=== PATIENT | male | born 1980 | race Caucasian/White ===

== ENCOUNTER 2018-12-06 14:44 | Emergency (ER) | payer BC, SELFPAY ==
--- NOTE | 2018-12-06 15:19 | ER ---
Nurse's Notes [facility] Name: Riki Vinson Age: 38 yrs Sex: Male : 1980 Arrival Date: 12/06/2018 Time: 14:50 Bed Waiting Private MD: None, None Diagnosis: ED Course: 12/06 14:50 Patient arrived in ED. mr 14:50 None, None is Private Physician. mr Administered Medications: No medications were administered Outcome: 15:19 Patient left the ED. ss Signatures: Eveline Moreno Shelby, RN RN ss
== END 2018-12-06 15:19 | disposition left against medical advice (07) ==
LOC: ER 14:44
DX: Z53.21 Procedure and treatment not carried out due to patient leaving prior to being seen by health care provider (principal)

== ENCOUNTER 2018-12-07 11:04 | Emergency (ER) | payer SELFPAY ==
--- NOTE | 2018-12-07 11:51 | RAD REPORT ---
EXAM DESCRIPTION: CT - Spine Lumbar Wo Con - 12/07/2018 11:38 am CLINICAL HISTORY: Radiculopathy. PAIN COMPARISON: No comparisons TECHNIQUE: Axial noncontrast CT imaging of the lumbar spine was performed with coronal and sagittal re-formatted images. All CT scans are performed using dose optimization technique as appropriate and may include automated exposure control or mA/KV adjustment according to patient size. FINDINGS: No acute lumbar spine fracture seen. No aggressive marrow pattern or malalignment. Paraspinal tissues are normal in thickness. No paraspinal abscess or hematoma seen. Chronic bilateral spondylolysis is seen at L5-S1 with mild grade 1 anterolisthesis of L5 on S1. IMPRESSION: No acute lumbar spine abnormality is seen. 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 Consider MRI follow-up for assessment of disc disease if clinically desired.
[2018-12-07] MEDS ORDERED: HYDROCODONE/APAP 10/325 TAB ONE (12:19)
[2018-12-07] MEDS ORDERED: DIAZEPAM 5 MG TABLET ONE (12:20)
--- NOTE | 2018-12-07 12:45 | EDPHYS ---
Physician Documentation [facility] Name: Riki Vinson Age: 38 yrs Sex: Male : 1980 Arrival Date: 12/07/2018 Time: 11:05 Bed 16 Private MD: ED Physician Mary Fish HPI: 12/07 11:29 This 38 yrs old Male presents to ER via Ambulatory with complaints of Back ma2 Pain. 11:29 The patient presents with pain that is acute. The symptoms are located in the low back. ma2 Onset: The symptoms/episode began/occurred gradually, 9 day(s) ago. The pain does not radiate. Associated signs and symptoms: The patient has no apparent associated signs or symptoms, Pertinent positives: none Pertinent negatives: abdominal pain, chest pain, constipation, dysuria, fever, headache, hematuria, incontinence, nausea, numbness, tingling, urinary retention, vomiting, weakness. Modifying factors: The patient symptoms are alleviated by nothing, the patient symptoms are aggravated by bending. Severity of symptoms: At their worst the symptoms were moderate, in the emergency department the symptoms are unchanged. The patient has not experienced similar symptoms in the past. Historical: - Allergies: 11:14 No Known Allergies; hb - Home Meds: 11:14 None [Active]; hb - PMHx: 11:14 None; hb - PSHx: 11:14 skin graft - ear; hb - Immunization history:: Adult Immunizations up to date. - Social history:: Smoking status: Patient uses tobacco products, smokes one pack cigarettes per day. Patient/guardian denies using alcohol, street drugs, The patient lives with family. - Ebola Screening: : No symptoms or risks identified at this time. - Family history:: not pertinent. ROS: 11:29 Constitutional: Negative for fever, chills, and weight loss. ma2 11:29 Back: Positive for pain with movement, Negative for injury or acute deformity, decreased range of motion, radiated pain, acute changes. 11:29 All other systems are negative. Exam: 11:29 Constitutional: This is a well developed, well nourished patient who is awake, alert, ma2 and in no acute distress. Chest/axilla: Normal chest wall appearance and motion. Nontender with no deformity. No lesions are appreciated. Cardiovascular: Regular rate and rhythm with a normal S1 and S2. No gallops, murmurs, or rubs. Normal PMI, no JVD. No pulse deficits. Respiratory: Lungs have equal breath sounds bilaterally, clear to auscultation and percussion. No rales, rhonchi or wheezes noted. No increased work of breathing, no retractions or nasal flaring. Abdomen/GI: Soft, non-tender, with normal bowel sounds. No distension or tympany. No guarding or rebound. No evidence of tenderness throughout. 11:29 Skin: Warm, dry with normal turgor. Normal color with no rashes, no lesions, and no evidence of cellulitis. MS/ Extremity: Pulses equal, no cyanosis. Neurovascular intact. Full, normal range of motion. Neuro: Awake and alert, GCS 15, oriented to person, place, time, and situation. Cranial nerves II-XII grossly intact. Motor strength 5/5 in all extremities. Sensory grossly intact. Cerebellar exam normal. Normal gait. 11:29 Back: pain, that is moderate, ROM is painful, normal spinal alignment noted, CVA tenderness, is absent, muscle spasm, is appreciated in the left low back and right low back, Straight leg raises: Vital Signs: 11:14 BP 139 / 75; Pulse 81; Resp 16; Temp 97.8; Pulse Ox 100% on R/A; Pain 6/10; hb MDM: 11:15 Patient medically screened. dc2 11:29 Differential diagnosis: Fracture Osteoarthritis ruptured disc, sprain, vertebral ma2 fracture. 11:31 ED course: ptn declined injections. dc2 12:44 Data reviewed: vital signs, nurses notes. Counseling: I had a detailed discussion with ma2 the patient and/or guardian regarding: the historical points, exam findings, and any diagnostic results supporting the discharge/admit diagnosis, the presence of at least one elevated blood pressure reading (>120/80) during this emergency department visit. Response to treatment: the patient's symptoms have markedly improved after treatment. 12/07 11:27 Order name: CT Lumbar Spine Wo Con; Complete Time: 12:03 ma2 12/07 11:19 Order name: NPO; Complete Time: 12:03 ma2 Administered Medications: 12:10 Drug: Valium 10 mg Route: PO; sg 12:10 Drug: [place] 10 mg-325 mg 1 tabs Route: PO; sg Disposition: 12/07/18 12:44 Discharged to Home. Impression: Low back pain. - Condition is Stable. - Discharge Instructions: Back Pain, Adult. - Prescriptions for Tylenol- Codeine #3 300-30 mg Oral Tablet - take 2 tablet by ORAL route every 6 hours As needed; 30 tablet. Cyclobenzaprine 10 mg Oral Tablet - take 1 tablet by ORAL route every 8 hours As needed; 30 tablet. - Work release form, Medication Reconciliation Form, Thank You Letter, Antibiotic Education, Prescription Opioid Use form. - Follow up: Private Physician; When: Tomorrow; Reason: Continuance of care. Signatures: Dispatcher [employer] EDBarrett Chris RN RN sg Baxter, Heather, RN RN Mary Fish MD MD ma2 Corrections: (The following items were deleted from the chart) 13:11 12:44 12/07/2018 12:44 Discharged to Home. Impression: Low back pain. Condition is sg Stable. Forms are Medication Reconciliation Form, Thank You Letter, Antibiotic Education, Prescription Opioid Use. Follow up: Private Physician; When: Tomorrow; Reason: Continuance of care. ma2
--- NOTE | 2018-12-07 12:45 | ER ---
Nurse's Notes [facility] Name: Riki Vinson Age: 38 yrs Sex: Male : 1980 Arrival Date: 12/07/2018 Time: 11:05 Bed 16 Private MD: Diagnosis: Low back pain Presentation: 12/07 11:12 Presenting complaint: Low back pain that radiates to left leg x 2 weeks. Denies injury. hb Transition of care: patient was not received from another setting of care. Onset of symptoms was December 07, 2018. Risk Assessment: Do you want to hurt yourself or someone else? Patient reports no desire to harm self or others. Initial Sepsis Screen: Does the patient meet any 2 criteria? No. Patient's initial sepsis screen is negative. Does the patient have a suspected source of infection? No. Patient's initial sepsis screen is negative. Care prior to arrival: None. 11:12 Method Of Arrival: Ambulatory hb 11:12 Acuity: SIL 4 hb Historical: - Allergies: 11:14 No Known Allergies; hb - Home Meds: 11:14 None [Active]; hb - PMHx: 11:14 None; hb - PSHx: 11:14 skin graft - ear; hb - Immunization history:: Adult Immunizations up to date. - Social history:: Smoking status: Patient uses tobacco products, smokes one pack cigarettes per day. Patient/guardian denies using alcohol, street drugs, The patient lives with family. - Ebola Screening: : No symptoms or risks identified at this time. - Family history:: not pertinent. Screenin:14 Abuse screen: Denies threats or abuse. Denies injuries from another. Nutritional hb screening: No deficits noted. Tuberculosis screening: No symptoms or risk factors identified. Fall Risk None identified. Vital Signs: 11:14 BP 139 / 75; Pulse 81; Resp 16; Temp 97.8; Pulse Ox 100% on R/A; Pain 6/10; hb ED Course: 11:05 Patient arrived in ED. as 11:13 Triage completed. hb 11:14 Arm band placed on left wrist. hb 11:15 Mary Fish MD is Attending Physician. ma2 11:[address] via wheelchair. vm2 11:37 CT Lumbar Spine Wo Con In Process Unspecified. EDMS 12:08 Tilley, Barrett, RN is Primary Nurse. sg Administered Medications: 12:10 Drug: Valium 10 mg Route: PO; sg 12:10 Drug: [place] 10 mg-325 mg 1 tabs Route: PO; sg Outcome: 12:44 Discharge ordered by MD. aquino 13:11 Patient left the ED. sg Signatures: Dispatcher [employer] EDMS Barrett Tilley RN RN sg Martinez, Amelia as Baxter, Heather, RN RN Jesica Mcintyre [facility] Mary Fish MD MD ma2
== END 2018-12-07 13:11 | disposition home or self-care (01) ==
LOC: ER 11:04
DX: M54.5 Low back pain (principal); M47.817 Spondylosis without myelopathy or radiculopathy, lumbosacral region; F17.210 Nicotine dependence, cigarettes, uncomplicated
CPT/HCPCS: 72131; 99284

== ENCOUNTER 2019-10-10 13:15 | Inpatient (IN) | payer SELFPAY ==
[2019-10-10] MEDS: VANCOMYCIN 1.75 GM in NA CHLORIDE 0.9% 500 ML IV SCH ×2 (02:00→14:00)
[2019-10-10] MEDS ORDERED: VANCOMYCIN/NS 1 gm 1 GM/250 ML BAG IV ONE (14:15)
[2019-10-10] MEDS ORDERED: NA CHLORIDE 0.9% 1,000 ML ONE (14:28)
[2019-10-10 14:29] LABS: Absolute Lymphocytes (CBC) 1.9 K/uL (0.7-4.9); Hematocrit 41.3 % (39.6-49.0); Lymphocytes % 22.1 % (15.3-44.8); MPV 8.8 fL (7.6-11.3); RBC Red Blood Cell Count 4.58 M/uL (4.33-5.43)
[2019-10-10 14:41] LABS: BUN Blood Urea Nitrogen 8 mg/dL (7-18); Bicarbonate 27 mmol/L (21-32); Glucose Level 94 mg/dL (74-106); Potassium 3.8 mmol/L (3.5-5.1); Sodium Level 142 mmol/L (136-145)
[2019-10-10] MEDS ORDERED: PIPER/TAZO/NS 3.375gm 3.375 GM/100 ML BAG ONE (14:52)
--- NOTE | 2019-10-10 14:55 | RAD REPORT ---
EXAM DESCRIPTION: Aj Single View10/10/2019 2:46 pm CLINICAL HISTORY: Buttock abscess. Preop COMPARISON: 2009 FINDINGS: The lungs appear clear of acute infiltrate. The heart is normal size IMPRESSION: No acute abnormalities displayed
--- NOTE | 2019-10-10 14:56 | ER ---
Nurse's Notes [facility] Name: Riki Vinson Age: 39 yrs Sex: Male : 1980 Arrival Date: 10/10/2019 Time: 13:17 Bed 20 Private MD: Diagnosis: Large abscess/ cellulitis right buttock Presentation: 10/10 13:29 Presenting complaint: Patient states: abscess to right buttock/upper leg area X 1 week. iw Transition of care: patient was not received from another setting of care. Onset of symptoms was October 04, 2019. Risk Assessment: Do you want to hurt yourself or someone else? Patient reports no desire to harm self or others. Initial Sepsis Screen: Does the patient meet any 2 criteria? No. Patient's initial sepsis screen is negative. Does the patient have a suspected source of infection? No. Patient's initial sepsis screen is negative. Care prior to arrival: None. 13:29 Method Of Arrival: Ambulatory iw 13:29 Acuity: SIL 4 iw 14:31 Acuity: SIL 3 iw Triage Assessment: 13:30 General: Appears in no apparent distress. comfortable, Behavior is calm, cooperative, bp appropriate for age. Pain: Complains of pain in right gluteus shailesh. EENT: No deficits noted. Neuro: No deficits noted. Cardiovascular: No deficits noted. Respiratory: No deficits noted. GI: No signs and/or symptoms were reported involving the gastrointestinal system. : No signs and/or symptoms were reported regarding the genitourinary system. Derm: Abscess located on right gluteus shailesh. Musculoskeletal: No deficits noted. Historical: - Allergies: 13:30 No Known Allergies; iw - Home Meds: 13:30 None [Active]; iw - PMHx: 13:30 None; iw - PSHx: 13:30 skin graft - ear; iw - Immunization history:: Last tetanus immunization: unknown. - Social history:: Smoking status: Patient uses tobacco products, smokes one pack cigarettes per day. - Ebola Screening: : Patient negative for fever greater than or equal to 101.5 degrees Fahrenheit, and additional compatible Ebola Virus Disease symptoms Patient denies exposure to infectious person Patient denies travel to an Ebola-affected area in the 21 days before illness onset No symptoms or risks identified at this time. Screenin:00 Abuse screen: Denies threats or abuse. Denies injuries from another. Nutritional bp screening: No deficits noted. Tuberculosis screening: No symptoms or risk factors identified. Fall Risk None identified. Assessment: 13:30 General: SEE TRIAGE NOTE. bp 14:30 Reassessment: Patient appears in no apparent distress at this time. Pain: Complains of bp pain in right gluteus shailesh. Derm: Abscess located on right gluteus shailesh. 14:59 Reassessment: PT EVALUATED BY SURGERY. ADMIT INITIATED. PT TO BE NPO AFTER MIDNIGHT. bp 15:55 Reassessment: ADMIT COMPLETE. PT FOR SURGICAL I\T\D TOMORROW. bp Vital Signs: 13:30 BP 139 / 83; Pulse 83; Resp 16; Temp 97.9; Pulse Ox 100% on R/A; Weight 102.06 kg; iw Height 6 ft. 0 in. (182.88 cm); Pain 6/10; 15:01 BP 122 / 79; Pulse 67; Resp 16; Pulse Ox 97% ; bp 13:30 Body Mass Index 30.52 (102.06 kg, 182.88 cm) iw ED Course: 13:17 Patient arrived in ED. rg4 13:30 Triage completed. iw 13:30 Arm band placed on. iw 13:39 Luis Patino, POLO is Primary Nurse. bp 13:41 Rocky Polk MD is Attending Physician. pkl 13:45 Inserted saline lock: 20 gauge in right forearm, using aseptic technique. bp 14:46 XRAY CXR (1 view) In Process Unspecified. EDMS 14:54 Roosevelt Laboy MD is Hospitalizing Provider. pkl 15:00 Patient has correct armband on for positive identification. Placed in gown. Bed in low bp position. Call light in reach. Side rails up X2. Adult w/ patient. 15:56 No provider procedures requiring assistance completed. Patient admitted, IV remains in bp place. Administered Medications: 14:00 Drug: NS 0.9% 1000 ml Route: IV; Rate: 125 ml/hr; Site: right forearm; bp 15:41 Follow up: IV Status: Infusion continued upon admission bp 14:45 Drug: Zosyn 3.375 grams Route: IVPB; Infused Over: 60 mins; Site: right forearm; bp 15:30 Follow up: IV Status: Completed infusion; IV Intake: 100ml bp 15:30 Drug: vancoMYCIN 1 grams Route: IVPB; Infused Over: 2 hrs; Site: right wrist; bp 15:41 Follow up: IV Status: Infusion continued upon admission bp Intake: 15:30 IV: 100ml; Total: 100ml. bp Outcome: 14:56 Decision to Hospitalize by Provider. pkl 16:00 Admitted to Med/surg accompanied by tech, family with patient, via wheelchair, room bp 230, with chart, Report called to MAX RN 16:00 Condition: stable bp 16:00 Instructed on the need for admit. 17:17 Patient left the ED. bp Signatures: Dispatcher [employer] EDRocky Gifford MD MD pkLias Nichole, RN RN Renetta Daniel 4 Luis Patino, RN RN bp
--- NOTE | 2019-10-10 14:57 | EDPHYS ---
Physician Documentation [facility] Name: Riki Vinson Age: 39 yrs Sex: Male : 1980 Arrival Date: 10/10/2019 Time: 13:17 Bed 20 Private MD: ED Physician Rocky Polk HPI: 10/10 13:49 This 39 yrs old Male presents to ER via Ambulatory with complaints of Boil. pkl 13:49 The patient presents with an abscess of the right gluteus shailesh, The patient presents pkl with cellulitis of the around the abscess. Description: The affected area is large, approximately 10 cm(s), fluctuant, swollen, warm. Onset: The symptoms/episode began/occurred 10 day(s) ago. Associated signs and symptoms: The patient has no apparent associated signs or symptoms. The patient has experienced similar episodes in the past, a few times. Historical: - Allergies: 13:30 No Known Allergies; iw - Home Meds: 13:30 None [Active]; iw - PMHx: 13:30 None; iw - PSHx: 13:30 skin graft - ear; iw - Immunization history:: Last tetanus immunization: unknown. - Social history:: Smoking status: Patient uses tobacco products, smokes one pack cigarettes per day. - Ebola Screening: : Patient negative for fever greater than or equal to 101.5 degrees Fahrenheit, and additional compatible Ebola Virus Disease symptoms Patient denies exposure to infectious person Patient denies travel to an Ebola-affected area in the 21 days before illness onset No symptoms or risks identified at this time. ROS: 13:49 Eyes: Negative for injury, pain, redness, and discharge, ENT: Negative for injury, pkl pain, and discharge, Neck: Negative for injury, pain, and swelling, Cardiovascular: Negative for chest pain, palpitations, and edema, Respiratory: Negative for shortness of breath, cough, wheezing, and pleuritic chest pain, Abdomen/GI: Negative for abdominal pain, nausea, vomiting, diarrhea, and constipation, Back: Negative for injury and pain, : Negative for injury, bleeding, discharge, and swelling, MS/Extremity: Negative for injury and deformity, Neuro: Negative for headache, weakness, numbness, tingling, and seizure. 13:49 Skin: Positive for abscess, cellulitis, of the right gluteus shailesh. Exam: 13:49 Head/Face: Normocephalic, atraumatic. Eyes: Pupils equal round and reactive to light, pkl extra-ocular motions intact. Lids and lashes normal. Conjunctiva and sclera are non-icteric and not injected. Cornea within normal limits. Periorbital areas with no swelling, redness, or edema. ENT: Nares patent. No nasal discharge, no septal abnormalities noted. Tympanic membranes are normal and external auditory canals are clear. Oropharynx with no redness, swelling, or masses, exudates, or evidence of obstruction, uvula midline. Mucous membranes moist. Neck: Trachea midline, no thyromegaly or masses palpated, and no cervical lymphadenopathy. Supple, full range of motion without nuchal rigidity, or vertebral point tenderness. No Meningismus. Chest/axilla: Normal chest wall appearance and motion. Nontender with no deformity. No lesions are appreciated. Cardiovascular: Regular rate and rhythm with a normal S1 and S2. No gallops, murmurs, or rubs. Normal PMI, no JVD. No pulse deficits. Respiratory: Lungs have equal breath sounds bilaterally, clear to auscultation and percussion. No rales, rhonchi or wheezes noted. No increased work of breathing, no retractions or nasal flaring. Abdomen/GI: Soft, non-tender, with normal bowel sounds. No distension or tympany. No guarding or rebound. No evidence of tenderness throughout. Back: No spinal tenderness. No costovertebral tenderness. Full range of motion. MS/ Extremity: Pulses equal, no cyanosis. Neurovascular intact. Full, normal range of motion. Neuro: Awake and alert, GCS 15, oriented to person, place, time, and situation. Cranial nerves II-XII grossly intact. Motor strength 5/5 in all extremities. Sensory grossly intact. Cerebellar exam normal. Normal gait. 13:49 Skin: abscess, that is large, approximately 10 cm(s), cellulitis, that is moderate. Vital Signs: 13:30 BP 139 / 83; Pulse 83; Resp 16; Temp 97.9; Pulse Ox 100% on R/A; Weight 102.06 kg; iw Height 6 ft. 0 in. (182.88 cm); Pain 6/10; 15:01 BP 122 / 79; Pulse 67; Resp 16; Pulse Ox 97% ; bp 13:30 Body Mass Index 30.52 (102.06 kg, 182.88 cm) iw MDM: 13:41 Patient medically screened. pkl 14:53 Data reviewed: vital signs, nurses notes, lab test result(s), EKG, radiologic studies, pkl plain films. ED course: Talked to Dr. Laboy, it. 10/10 13:48 Order name: CBC with Diff; Complete Time: 14:34 pkl 10/10 13:48 Order name: Chem 7; Complete Time: 14:53 pkl 10/10 15:31 Order name: Basic Metabolic Panel EDMS 10/10 15:31 Order name: Basic Metabolic Panel EDMS 10/10 15:31 Order name: CBC with Automated Diff EDMS 10/10 15:31 Order name: CBC with Automated Diff EDMS 10/10 14:36 Order name: EKG; Complete Time: 14:36 pkl 10/10 14:36 Order name: XRAY CXR (1 view); Complete Time: 15:14 pkl 10/10 15:31 Order name: CONS Pharmacy Consult EDMS 10/10 15:31 Order name: NPO EDMS Administered Medications: 14:00 Drug: NS 0.9% 1000 ml Route: IV; Rate: 125 ml/hr; Site: right forearm; bp 15:41 Follow up: IV Status: Infusion continued upon admission bp 14:45 Drug: Zosyn 3.375 grams Route: IVPB; Infused Over: 60 mins; Site: right forearm; bp 15:30 Follow up: IV Status: Completed infusion; IV Intake: 100ml bp 15:30 Drug: vancoMYCIN 1 grams Route: IVPB; Infused Over: 2 hrs; Site: right wrist; bp 15:41 Follow up: IV Status: Infusion continued upon admission bp Disposition: 10/10/19 14:56 Hospitalization ordered by Roosevelt Laboy for Inpatient Admission. Preliminary diagnosis is Large abscess/ cellulitis right buttock. - Bed requested for Telemetry/MedSurg (Inpatient). - Status is Inpatient Admission. bp - Condition is Stable. - Problem is new. - Symptoms are unchanged. UTI on Admission? No Signatures: Dispatcher [employer] EDFL Rebecca Petersen Pin, MD MD pkl Kurt, Lisa, RN RN iw Sukumar, Luis, RN RN bp Corrections: (The following items were deleted from the chart) 15:37 14:56 Hospitalization Ordered by Roosevelt Laboy MD for Inpatient Admission. Preliminary bd diagnosis is Large abscess/ cellulitis right buttock. Bed requested for Telemetry/MedSurg (Inpatient). Status is Inpatient Admission. Condition is Stable. Problem is new. Symptoms are unchanged. UTI on Admission? No. pkl 17:17 15:37 10/10/2019 14:56 Hospitalization Ordered by Roosevelt Laboy MD for Inpatient bp Admission. Preliminary diagnosis is Large abscess/ cellulitis right buttock. Bed requested for Telemetry/MedSurg (Inpatient). Status is Inpatient Admission. Condition is Stable. Problem is new. Symptoms are unchanged. UTI on Admission? No. bd
[2019-10-10] MEDS ORDERED: VANCOMYCIN/NS 1 gm 1 GM/250 ML BAG IVPB SCH (15:30)
[2019-10-10 17:57] VITALS: BMI 30.1
[2019-10-10] MEDS: PIPER/TAZO/NS 3.375gm 3.375 GM/100 ML BAG IVPB SCH ×2 (18:00→20:16)
[2019-10-10] MEDS: NA CHLORIDE 0.9% 1,000 ML IV SCH (18:10)
[2019-10-10] MEDS ORDERED: HYDROCODONE/APAP 5/325 MG TAB PO PRN (21:29)
[2019-10-10] MEDS: MORPHINE 2 MG/ML SYR IV PRN (22:32)
[2019-10-11] MEDS: PIPER/TAZO/NS 3.375gm 3.375 GM/100 ML BAG IVPB SCH (00:13)
[2019-10-11] MEDS ORDERED: VANCOMYCIN 1.75 GM in NA CHLORIDE 0.9% 500 ML IV SCH (02:00)
[2019-10-11] MEDS: NA CHLORIDE 0.9% 1,000 ML IV SCH (04:44)
[2019-10-11 05:40] LABS: Absolute Lymphocytes (CBC) 2.3 K/uL (0.7-4.9); Basophils % 1.2 % (0-1.3); Hematocrit 39.1 % (39.6-49.0); Lymphocytes % 23.4 % (15.3-44.8); MPV 8.5 fL (7.6-11.3); RBC Red Blood Cell Count 4.38 M/uL (4.33-5.43)
[2019-10-11 05:55] LABS: BUN Blood Urea Nitrogen 6 mg/dL (7-18); Bicarbonate 25 mmol/L (21-32); Glucose Level 93 mg/dL (74-106); Potassium 3.9 mmol/L (3.5-5.1); Sodium Level 142 mmol/L (136-145)
[2019-10-11] MEDS: MORPHINE 2 MG/ML SYR IV PRN (06:05)
[2019-10-11] MEDS ORDERED: MIDAZOLAM HCL 2 MG/2 ML INJ ONE (06:53)
[2019-10-11] MEDS ORDERED: propofoL 200 MG/20 ML VIAL IV ONE (06:53)
[2019-10-11] MEDS ORDERED: FENTANYL CITR 100 MCG/2 ML ONE (06:53)
[2019-10-11] MEDS ORDERED: LIDOCAINE 2% MPF 5 ML VIAL ONE (06:53)
[2019-10-11] MEDS ORDERED: ONDANSETRON 4 MG/2 ML VIAL ONE (06:54)
[2019-10-11] MEDS ORDERED: BUPIVACAINE 0.5% PF 10 ML VIAL ONE (07:04)
[2019-10-11] MEDS ORDERED: INFLUENZA VACCINE (for 3y+) 0.5 ML DOSE IMVAC ONE (08:00)
--- NOTE | 2019-10-11 08:37 | P.BOP ---
Preoperative diagnosis: right buttock cellulitis, abscess Postoperative diagnosis: same Primary procedure: Incision and drainage of complex abscess right buttock Estimated blood loss: <20cc Specimen: culture and tissue Findings: complex abscess right buttock Complications: None Transferred to: Recovery Room Condition: Good
[2019-10-11] MEDS ORDERED: PIPER/TAZO/NS 3.375gm 3.375 GM/100 ML BAG IVPB SCH (09:00)
[2019-10-11 09:04] VITALS: O2SAT 98
[2019-10-11] MEDS: HYDROMORPHONE HCL 1 MG/ML INJ ONE ×2 (09:05→09:12)
--- NOTE | 2019-10-11 09:17 | HP ---
Date of Admission: 10/10/2019 This patient was seen in ER. History Of Present Illness: This is the case of a 39-year-old patient, who comes to us with an indur ation, tenderness, increased erythema over a large area of the right buttock. He says he has been li ke this for the last 2 weeks. He came to the ER today when he was not getting better, and diagnosed with a large abscess and a surgical evaluation was requested by the ER physician. He denies any trau ma, any dysuria, hematuria, hematochezia melena. Denies any recent traveling out of the country. De nies any family member sick at home. Past Medical History: None. Medications: None. Surgeries: None, although he claims he has some skin graft in the ear. He smokes 1 pack a day. He was counseled about the smoking cessation. He does not drink alcohol. No other drug use. Review of Systems: Ten points were otherwise unremarkable. Physical Examination: General: Patient is awake and alert. HEENT: Pupils are equal and reactive, anicteric. Neck: Supple. Chest: Clear. Abdomen: Soft and depressible. No guarding or rebound. Skin: Over the right buttock, lateral and superior, the patient has a large area that is about 22 x 30 cm area of induration, cellulitis, and abscess with fluctuance and bulging out. Some of the skin pigmentation looked like a prior ulceration, although no ulceration at this time. Perianal area is n ot involved, at least obviously. Extremities: Good capillary refill. Good peripheral pulses. Neurologic: Cranial nerves 2 through 12 grossly within normal limits. Laboratory Data: Blood work shows WBC count of 8.6 and hemoglobin at 13.9, platelets of 304. Chlori de is 110 . Assessment: This is a 39-year-old patient with a large right buttock abscess. Patient needs incisio n and drainage and debridement since there is area of nonviable tissue and most likely, we are going to send that for a biopsy since we noticed some change in color over the area. The benefits, alterna tives, and risks of surgery were fully explained to the patient, which include but are not limited to infection, bleeding, damage to adjacent structures, anesthesia complication, nonhealing wound, WA, a nd even . He also understands this may not relieve any symptoms. He might need more than one s urgical intervention. He also understands the importance of wound care that he will require for the next few months. PATRICIA Voice ID: [id number]
[2019-10-11 09:24] VITALS: BP 112/71; TEMP 98.4
--- NOTE | 2019-10-11 19:02 | OP ---
Date of Procedure: 10/11/2019 Surgeon: Roosevelt Laboy MD Preoperative Diagnosis: Right buttock cellulitis and abscess. Postoperative Diagnosis: Complex abscess of right buttock and cellulitis. Procedure: Wide excision of a necrotic tissue from the right buttock abscess with incision and drain age of a complex abscess. Anesthesia: General plus local. Specimen: Culture and necrotic tissue. Indications: This is the case of a 39-year-old patient, comes to us with a right buttocks complex ab scess and cellulitis. Benefits, alternatives, and risks of incision and drainage and debridement ful ly explained , which include but are not limited to infection, bleeding, damage to adjacent structure s, anesthesia complication, [place], and even . He also understands this may not relieve any symptom s. He might need more than one surgical intervention. He understood and signed a consent. Description Of Procedure: Patient was brought to the operating room, placed in supine position. Ane sthesia was achieved without complication. A time-out was called. Right buttock was prepped and corrie ped in a sterile fashion, after the patient was placed carefully in lateral decubitus position. Loca l anesthesia was applied. Then, we proceeded to remove all nonviable tissue from that area. It gave us in a complex abscess with multiple loculations . Hemostasis was obtained. The area wa s irrigated and then packed with wet-to-dry dressing. Patient tolerated the procedure well. The patient was sent in his way to Recovery in stab le condition. JAYDA/ARNOLDO Voice ID: [id number] Report ID: [id number]
== END 2019-10-11 10:09 | disposition home or self-care (01) | DRG 572 ==
LOC: ER 13:15 → ERHOLD 15:21 → 2ND 16:03
PROVIDERS: ADMIT Surgery; ATTEND Surgery
PROC: 0JB90ZZ Excision of Buttock Subcutaneous Tissue and Fascia, Open Approach (ICD-10-PCS; principal; 2019-10-11 07:30)
DX: L02.31 Cutaneous abscess of buttock (principal); F17.210 Nicotine dependence, cigarettes, uncomplicated
CPT/HCPCS: 36415; 71045; 80048; 85025; 87070; 87075; 87077; 87186; 87205; 88304; 96361; 96365; 96375; 99285; J1170; J2250; J2270; J2405; J2543; J2704; J3010; J3370; J7030; J7040

== ENCOUNTER 2024-08-04 10:12 | Emergency (ER) | payer OTHER, SELFPAY ==
[2024-08-04] MEDS ORDERED: LIDOCAINE 1% 20 ML MDV ONE (10:34)
--- NOTE | 2024-08-04 11:45 | ER ---
Nurse's Notes [facility] Name: Riki Vinson Age: 44 yrs Sex: Male : 1980 Arrival Date: 08/04/2024 Time: 10:12 Bed 7 Private MD: Diagnosis: Cutaneous abscess of back [any part, except buttock] Presentation: 08/04 10:25 Chief complaint: Patient states: Abscess to mid upper back since 2012. Red, swollen, ll1 tender since Thursday night. Coronavirus screen: Client denies travel out of the [place] in the last 14 days. At this time, the client does not indicate any symptoms associated with coronavirus-19. Ebola Screen: Patient denies travel to an Ebola-affected area in the 21 days before illness onset. Initial Sepsis Screen: Does the patient meet any 2 criteria? No. Patient's initial sepsis screen is negative. Does the patient have a suspected source of infection? No. Patient's initial sepsis screen is negative. Risk Assessment: Do you want to hurt yourself or someone else? Patient reports no desire to harm self or others. Onset of symptoms was August 03, 2024. 10:25 Method Of Arrival: Ambulatory ll1 10:25 Acuity: SIL 3 ll1 Triage Assessment: 10:28 General: Appears uncomfortable, Behavior is calm, cooperative, appropriate for age. ll1 Pain: Complains of pain in back Quality of pain is described as aching. Derm: Abscess located on upper back is golf ball sized, is hot to touch, is red, is raised. Historical: - Allergies: 10:26 No Known Allergies; ll1 - PMHx: 10:26 None; ll1 - PSHx: 10:26 None; ll1 - Immunization history:: Adult Immunizations up to date. - Infectious Disease History:: Denies. - Social history:: Smoking status: Patient reports the use of cigarette tobacco products, smokes one pack cigarettes per day. - Family history:: not pertinent. - Hospitalizations: : No recent hospitalization is reported. Screenin:31 [facility] ED Fall Risk Assessment (Adult) History of falling in the last 3 months, mb9 including since admission No falls in past 3 months (0 pts) Confusion or Disorientation No (0 pts) Intoxicated or Sedated No (0 pts) Impaired Gait No (0 pts) Mobility Assist Device Used No (0 pt) Altered Elimination No (0 pt) Score/Fall Risk Level 0 - 2 = Low Risk Oriented to surroundings, Maintained a safe environment, Educated pt \T\ family on fall prevention, incl call for assistance when getting out of bed. Abuse screen: Denies threats or abuse. Nutritional screening: No deficits noted. Tuberculosis screening: No symptoms or risk factors identified. Assessment: 10:30 General: Appears in no apparent distress. Behavior is calm, cooperative. Pain: mb9 Complains of pain in back. Neuro: Level of Consciousness is awake, alert, obeys commands, Oriented to person, place, time, situation, Appropriate for age. Cardiovascular: Patient's skin is warm and dry. Cardiovascular:. Respiratory: Airway is patent Respiratory effort is even, unlabored, Respiratory pattern is regular, symmetrical. GI: No signs and/or symptoms were reported involving the gastrointestinal system. : No signs and/or symptoms were reported regarding the genitourinary system. EENT: No signs and/or symptoms were reported regarding the EENT system. Derm: Abscess located on back is golf ball sized, is hot to touch, is red, is raised. Musculoskeletal: Range of motion: intact in all extremities. 11:45 Reassessment: No changes from previously documented assessment. Patient and/or family mb9 updated on plan of care and expected duration. Pain level reassessed. Patient is alert, oriented x 3, equal unlabored respirations, skin warm/dry/pink. Vital Signs: 10:25 BP 150 / 87; Pulse 100; Resp 18; Pulse Ox 99% ; Weight 106.59 kg; Height 6 ft. 0 in. ; ll1 Pain 9/10; 10:25 Body Mass Index 31.87 (106.59 kg, 182.88 cm) ll1 10:25 Pain Scale: Adult ll1 ED Course: 10:15 Patient arrived in ED. mr 10:22 Noé Guillen MD is Attending Physician. rn 10:26 Triage completed. ll1 10:28 Eveline Foote RN is Primary Nurse. mb9 10:28 Arm band placed on Patient placed in an exam room, on a stretcher. ll1 10:32 Placed in gown. Bed in low position. Call light in reach. Side rails up X 1. Provided mb9 Education on: press call light if needing anything. Client placed on continuous cardiac and pulse oximetry monitoring. NIBP monitoring applied. 11:44 Kapil Graham MD is Referral Physician. rn 11:44 Assist provider with I \T\ D: of an abscess on Set up I\T\D tray. Performed by Noé goss 9 Wound packed. iodoform gauze, Patient tolerated well. 11:44 Patient did not have IV access during this emergency room visit. mb9 11:53 Dressings: Kerlix non-adherent dressing. Wound care:. mb9 Administered Medications: 11:23 Drug: Lidocaine Infiltration (1 %) 1 vials 20 ml Infiltration once; to bedside Volume: mb9 20 ml; Route: Infiltration; 11:45 Follow up: Response: No adverse reaction mb9 Medication: 10:31 VIS not applicable for this client. mb9 Outcome: 11:44 Discharge ordered by MD. rn 11:53 Discharged to home ambulatory, mb9 11:53 Condition: stable 11:53 Discharge instructions given to patient, Instructed on discharge instructions, follow up and referral plans. Demonstrated understanding of instructions, follow-up care, medications, Prescriptions given X 1, 11:54 Patient left the ED. mb9 Signatures: Eveline Moreno, Noé Rodriguez MD MD rn Lewis, Lynsay, RN RN Eveline Lee RN RN mb9
--- NOTE | 2024-08-04 11:45 | EDPHYS ---
Physician Documentation [facility] Name: Riki Vinson Age: 44 yrs Sex: Male : 1980 Arrival Date: 08/04/2024 Time: 10:12 Bed 7 Private MD: ED Physician Noé Guillen HPI: 08/04 11:39 This 44 yrs old Male presents to ER via Ambulatory with complaints of Abscess. rn 11:39 The patient presents with an abscess of the back. Onset: The symptoms/episode rn began/occurred 2 day(s) ago. Possible cause(s): unknown. Modifying factors: the symptoms are alleviated by nothing, the symptoms are aggravated by touching. Severity of symptoms: At their worst the symptoms were moderate, in the emergency department the symptoms are unchanged. The patient has experienced a previous episode. Patient reports has had swelling to the upper back for years, never gave him trouble until 2 days ago when became red and painful. More swollen. No fever or chills. Has had abscess in the past but on the leg.. Historical: - Allergies: 10:26 No Known Allergies; ll1 - PMHx: 10:26 None; ll1 - PSHx: 10:26 None; ll1 - Immunization history:: Adult Immunizations up to date. - Infectious Disease History:: Denies. - Social history:: Smoking status: Patient reports the use of cigarette tobacco products, smokes one pack cigarettes per day. - Family history:: not pertinent. - Hospitalizations: : No recent hospitalization is reported. ROS: 11:39 Constitutional: Negative for fever, chills, and weight loss, Skin: Positive for abscess rn Exam: 11:39 Constitutional: This is a well developed, well nourished patient who is awake, alert, rn and in no acute distress. Skin: Mid upper back with 3 cm area of fluctuance and induration consistent with abscess. Vital Signs: 10:25 BP 150 / 87; Pulse 100; Resp 18; Pulse Ox 99% ; Weight 106.59 kg; Height 6 ft. 0 in. ; ll1 Pain 9/10; 10:25 Body Mass Index 31.87 (106.59 kg, 182.88 cm) ll1 10:25 Pain Scale: Adult ll1 Procedures: 11:39 I \T\ D: Incision and drainage was performed for an abscess of the back Prepped with rn Betadine, Anesthetized with 5 ml's 1% Lidocaine. Incised with #11 blade. Drained moderate amount purulent fluid. Fatty tissue Loculations removed. Abscess cavity explored. Packed with iodoform gauze, Dressing: sterile 4x4 gauze, the patient tolerated the procedure well. MDM: 10:22 Medical Screening Exam initiated rn 11:39 Differential diagnosis: abscess, cellulitis. Data reviewed: vital signs, nurses notes, rn and as a result, I will discharge patient. Counseling: I had a detailed discussion with the patient and/or guardian regarding the historical points, exam findings, and any diagnostic results supporting the discharge/admit diagnosis, the need for outpatient follow up, to return to the emergency department if symptoms worsen or persist or if there are any questions or concerns that arise at home. Special discussion: I discussed with the patient/guardian in detail that at this point there is no indication for admission to the hospital. It is understood, however, that if the symptoms persist or worsen the patient needs to return immediately for re-evaluation. Based on the history and exam findings, there is no indication for further emergent testing or inpatient evaluation. I discussed with the patient/guardian the need to see the general surgeon for further evaluation of the symptoms. 08/04 10:35 Order name: Incision \T\ Drainage Setup; Complete Time: 10:41 rn Administered Medications: 11:23 Drug: Lidocaine Infiltration (1 %) 1 vials 20 ml Infiltration once; to bedside Volume: mb9 20 ml; Route: Infiltration; 11:45 Follow up: Response: No adverse reaction mb9 Disposition Summary: 08/04/24 11:44 Discharge Ordered Notes: Location: Home rn Problem: new rn Symptoms: have improved rn Condition: Stable rn Diagnosis - Cutaneous abscess of back [any part, except buttock] rn Followup: rn - With: Kapil Graham MD - When: As needed - Reason: Recheck today's complaints, Re-evaluation by your physician Discharge Instructions: - Discharge Summary Sheet rn - Skin Abscess rn - Incision and Drainage rn - Wound Packing rn - Incision and Drainage, Care After rn Forms: - Medication Reconciliation Form rn - Antibiotic assistant attorney general - Prescription Opioid Use rn - Patient Portal Instructions rn - Leadership Thank You Letter rn Prescriptions: - Clindamycin HCl 300 mg Oral Capsule - take 1 capsule ORAL route every 6 hours for 10 days; 40 capsule; Refills: 0, rn Product Selection Permitted Signatures: Noé Guillen MD MD rn Daljit Huerta RN RN ll1 Eveline Foote RN RN mb9
[2024-08-04 11:59] VITALS: BP 150/87; O2SAT 99
== END 2024-08-04 11:54 | disposition home or self-care (01) ==
LOC: ER 10:12
PROC: 0H96XZZ Drainage of Back Skin, External Approach (ICD-10-PCS; principal; 2024-08-04)
DX: L02.212 Cutaneous abscess of back [any part, except buttock and flank] (principal)
CPT/HCPCS: 99284; 10060; J2003